=== PATIENT | male | born 1995 | race Caucasian/White ===

== ENCOUNTER 2019-10-28 23:30 | Emergency (ER) | payer OTHER, MEDICAID, SELFPAY ==
[2019-10-28 23:38] VITALS: BP 130/52; PULSE 77; RESP 17; TEMP 36.8; O2SAT 100
--- NOTE | 2019-10-28 23:48 | ED.DENTAL ---
HPI - Dental/Oral General Chief complaint: Dental/Oral Stated complaint: TOOTHACHE/EARACHE/ST Time Seen by Provider: 10/28/19 23:43 History of Present Illness HPI Narrative: Pain in lower molars on the right for 3 weeks. Moderate intensity. Tried tylenol without relief. He has not been able to see a dentist. No fever, chills, swelling. Related Data Allergies Allergy/AdvReac Type Severity Reaction Status Date / Time No Known Allergies Allergy Unverified 10/28/19 23:32 Review of Systems Review of Systems: All systems reviewed & are unremarkable except as noted in HPI and below Constitutional: Constitutional: Denies chills and Denies fever(s) Eyes: Eyes: Denies change in vision ENT: Denies nasal congestion Comments: otalgia Cardiovascular: Cardiovascular: Denies chest pain Respiratory: Respiratory: Denies cough and Denies dyspnea Gastrointestinal: Gastrointestinal: Denies nausea Neurologic: Denies dizziness, Reports headache(s) and Denies weakness PMFSH Social History Social History (Updated 10/29/19 @ 05:45 by Faisal Ledezma MD) Smoking status: Current every day smoker Gender identity (if verbalized by the patient): Male Exam Const: General: healthy appearing, no acute distress and alert Nutritional Appearance: well nourished Orientation/consciousness: patient oriented x3 HENMT: Ears: TM's normal bilaterally Other: large cavity of left lower molar with erythema of surrounding gums. No significant swelling or abscess Eyes: Pupils: Equal, round and reactive pupils present Resp: Effort & Inspection: normal respiratory effort Skin: General skin exam: normal color Neuro: General: patient oriented x3 Speech: normal speech Course Vital Signs Vital signs: Vital Signs Temperature 36.8 C 10/28/19 23:38 Pulse Rate 77 10/28/19 23:38 Respiratory Rate 17 10/28/19 23:38 Blood Pressure 130/52 L 10/28/19 23:38 Pulse Oximetry 100 10/28/19 23:38 Temperature 36.8 C 10/28/19 23:38 Pulse Rate 77 10/28/19 23:38 Respiratory Rate 17 10/28/19 23:38 Blood Pressure 130/52 L 10/28/19 23:38 Pulse Oximetry 100 10/28/19 23:38 Discharge Plan Discharge Clinical Impression: Dental infection Patient Disposition: Home, Self-Care Condition: Stable Instructions: Antibiotic Form, Dental Abscess (ED) Additional Instructions: Schedule a follow-up appointment with a dentist as soon as possible Prescriptions: New naproxen 500 mg tablet 500 mg PO BID PRN (Reason: pain) Qty: 30 RF: 0 penicillin V potassium 500 mg tablet 500 mg PO Q8H Qty: 30 RF: 0 Follow-up/Referrals: Alex,Long Jackson MD [Primary Care Provider] - Stand Alone Forms: Work/School Release IP Discharge Date/Time: 10/29/19 00:36
[2019-10-29] MEDS: PENICILLIN V POTASSIUM 250 MG TABLET 500 MG PO (00:29)
[2019-10-29] MEDS: KETOROLAC (*BKC) 60 MG/2 ML VIAL IM (00:29)
== END 2019-10-29 00:36 | disposition home or self-care (01) ==
PROVIDERS: Emergency Provider Emergency Medicine; PCP Pediatrics
DX: K04.7 Periapical abscess without sinus (principal); F17.200 Nicotine dependence, unspecified, uncomplicated
CPT/HCPCS: 96372; 99283; A9270; J1885

== ENCOUNTER 2020-08-03 17:47 | Emergency (ER) | payer OTHER, MEDICAID, SELFPAY ==
--- NOTE | ~2020-08-03 | XR_ITS ---
EXAMINATION: XR chest 2V 08/03/2020 18:16 INDICATION: Midsternal chest pain and congestion PROCEDURE: 2 view chest COMPARISON: 08/13/2016 FINDINGS: The lungs are clear. The lungs are mildly hyperinflated, which can be associated with react [place] airway disease. The cardiomediastinal silhouette is within normal limits. There are no pleural e ffusions. There is no pneumothorax suspected. IMPRESSION: 1: NO ACUTE CARDIOPULMONARY DISEASE. Reviewed, dictated and finalized at location [facility]
--- NOTE | 2020-08-03 17:49 | ECG_ITS ---
Measurements Intervals [place] Rate: 54 P: 46 IA: 144 QRS: 83 QRSD: 83 T: 38 QT: 358 QTc: 340 Interpretive Statements SINUS BRADYCARDIA BASELINE WANDER- II, III, AVL, AVF, V4-V6 BORDERLINE ECG Electronically Signed On 08-03-2020 18:56:53 [employer] OFFIC[employer] by Cullen Horn D.O.
[2020-08-03 17:53] VITALS: BP 122/72; PULSE 78; RESP 18; TEMP 36.6; O2SAT 96
[2020-08-03 18:09] LABS: Basophils Absolute Auto 0.1 K/mm3 (0.0-0.1); Basophils Percent Auto 0.8 % (0.2-1.2); Eosinophils Absolute Auto 0.1 K/mm3 (0-0.3); Eosinophils Percent Auto 1.7 % (0-4.4); Hematocrit 39.5 % (42.0-52.0); Hemoglobin 13.7 g/dL (14.0-18.0); Immature Granulocyte Absolute 0.02 K/mm3 (0.00-0.031); Immature Granulocyte Percent A 0.3 % (0-0.5); Lymphocytes Absolute Auto 2.23 K/mm3 (0.9-3.2); Mean Corpuscular HGB Conc 34.7 g/dl (32-36); Mean Corpuscular Hemoglobin 31.1 pg (26-34); Mean Corpuscular Volume 89.6 fl (80-100); Mean Platelet Volume 9.5 fl (7.4-10.4); Monocytes Absolute Auto 0.8 K/mm3 (0.1-0.6); Monocytes Percent Auto 10.8 % (2.6-8.5); Neutrophils Absolute Auto 4.4 K/mm3 (1.3-6.7); Neutrophils Percent Auto 57.4 % (45.5-73.1); Platelet Count Result 294 k/mm3 (150-375); Red Blood Count 4.41 M/mm3 (4.6-6.20); Red Cell Distribution Width 12.1 % (11.5-14.5); White Blood Count 7.7 K/mm3 (4.5-10.0)
[2020-08-03 18:20] LABS: Anion Gap 8 mmol/L (8-16); Blood Urea Nitrogen 12 mg/dL (9-20); Calcium 9.8 mg/dL (8.4-10.2); Carbon Dioxide 28 mmol/L (22-30); Chloride 105 mmol/L (98-107); Estimated CRCL calculation 76 ml/min; Estimated Glomerular Filt Rate > 60; Glucose 102 mg/dL (75-110); Sodium 141 mmol/L (137-145)
[2020-08-03 18:23] LABS: Partial Thromboplastin Time 30.3 SECONDS (22.3-36.8)
[2020-08-03 18:32] LABS: Troponin I < 0.012 ng/mL (0.000-0.034)
--- NOTE | 2020-08-03 19:59 | ED.CHESTPAIN ---
HPI - Chest Pain General Chief Complaint: Chest Pain Stated Complaint: Chest Pain Time Seen by Provider: 08/03/20 19:57 Source: patient Mode of arrival: ambulatory Limitations: no limitations History of Present Illness HPI narrative: Patient is a 25-year-old male complaining of chest pain, left chest wall, sharp, 2 out of 10, nonradiating started approximately 1 week ago. Patient denies any shortness of breath, abdominal pain, nausea, vomiting, diaphoresis, fever or chills. Patient states he was tested for Covid this past week and it was negative. Related Data Home Medications Medication Instructions Recorded Confirmed No Home Medications 08/03/20 08/03/20 Allergies Allergy/AdvReac Type Severity Reaction Status Date / Time No Known Allergies Allergy Unverified 08/03/20 17:57 Review of Systems Review of Systems: All systems reviewed & are unremarkable except as noted in HPI and below Constitutional: Constitutional: Denies body ache(s), Denies chills, Denies excessive sweating, Denies fatigue, Denies fever(s), Denies headache(s), Denies lethargy, Denies malaise, Denies weakness and Denies weight loss Eyes: Eyes: Denies blurry vision, Denies change in vision and Denies loss of vision ENT: Denies dizziness, Denies ear discharge, Denies headache(s), Denies lip swelling, Denies epistaxis, Denies nasal congestion, Denies neck pain, Denies throat swelling and Denies tongue swelling Cardiovascular: Cardiovascular: Denies diaphoresis, Denies rapid heart rate, Denies edema, Denies irregular heart rhythm, Denies lightheadedness, Denies palpitations, Denies dyspnea and Denies dyspnea on exertion Respiratory: Respiratory: Denies chest congestion, Denies cough, Denies hemoptysis, Denies dyspnea and Denies dyspnea on exertion Gastrointestinal: Gastrointestinal: Denies abdominal pain, Denies melena, Denies hematochezia, Denies diarrhea, Denies nausea, Denies vomiting and Denies hematemesis Musculoskeletal: Musculoskeletal: Denies abnormal gait, Denies deformity, Denies joint swelling, Denies limited range of motion, Denies neck pain and Denies numbness Neurologic: Denies Abnormal speech present, Denies abnormal gait, Denies confusion, Denies dizziness, Denies headache(s), Denies focal weakness, Denies loss of vision, Denies numbness, Denies Other visual disturbances, Denies Sensory deficit (Neuro) and Denies weakness Psychiatric: Psychiatric: Denies confusion, Denies depression, Denies auditory hallucinations, Denies homicidal ideation and Denies suicidal ideation Endocrine: Endocrine: Denies cold intolerance, Denies excessive sweating, Denies fatigue, Denies heat intolerance and Denies palpitations Hematologic/Lymphatic: Hematologic/Lymphatic: Denies easy bleeding and Denies easy bruising Allergic/Immunologic: Allergic/Immunologic: Denies lip swelling, Denies throat swelling and Denies tongue swelling [facility] Social History Social History Smoking status: Current every day smoker Gender identity (if verbalized by the patient): Male Exam Const: General: cooperative, healthy appearing, comfortable, no acute distress, well developed, alert and awake; No confusion Orientation/consciousness: oriented to person, oriented to place, oriented to time, patient oriented x3 and No confusion Limitations: no limitations HENMT: Head: normal to inspection, normocephalic and atraumatic Ears: hearing grossly normal bilaterally, TM normal on the right and TM normal on the left General nose exam: Normal external nose present, Normal nares present and No nasal discharge present Face and sinus: normal facial exam Mouth: Yes Normal oral and palatal mucosa present, Yes lip normal, Yes tongue normal and Yes oropharynx normal Throat: posterior oropharynx normal, tonsils normal and uvula midline Eyes: General: appearance normal, both eyes and all related structures Pupils: Equal, round and reactive
--- NOTE | 2020-08-03 20:14 | PC.NURSE ---
cancelled med order.
[2020-08-03 20:28] VITALS: BP 118/68; PULSE 74; RESP 16; O2SAT 100
== END 2020-08-03 20:29 | disposition home or self-care (01) ==
PROVIDERS: Emergency Medicine Emergency Medical Services; Emergency Provider Emergency Medicine; PCP Pediatrics
DX: R07.89 Other chest pain (principal); F17.200 Nicotine dependence, unspecified, uncomplicated; R00.1 Bradycardia, unspecified
CPT/HCPCS: 36415; 71046; 80048; 84484; 85025; 85610; 85730; 93005; 99284

== ENCOUNTER 2022-01-13 12:23 | Emergency (ER) | payer OTHER, MEDICAID, SELFPAY ==
--- NOTE | 2022-01-13 12:25 | ECG_ITS ---
Measurements Intervals [place] Rate: 61 P: -14 RI: 120 QRS: 83 QRSD: 82 T: 28 QT: 372 QTc: 375 Interpretive Statements SINUS RHYTHM BORDERLINE ST ABNORMALITY- INFERIOR LEADS BASELINE ARTIFACT- I, III, AVR, AVL, AVF BORDERLINE ECG Electronically Signed On 01-13-2022 23:00:12 CDT by Cullen Horn D.O.
[2022-01-13 12:29] VITALS: BP 147/65; PULSE 54; RESP 16; TEMP 36.3; O2SAT 99
--- NOTE | 2022-01-13 13:12 | PC.NURSE ---
PT TO TRIAGE DESK AND STATES I'M COURT ORDERED TO SEE MY SON AT 1400. PT REPORTS HE IS GOING TO LEAVE AND COME BACK LATER. PT IS A/O X 4, NO DISTRESS, SKIN PWD AND GAIT IS STEADY.
== END 2022-01-13 13:29 | disposition left against medical advice (07) ==
PROVIDERS: Emergency Provider Emergency Medicine; PCP Pediatrics
DX: R06.02 Shortness of breath (principal)
CPT/HCPCS: 93005; 99199